=== PATIENT | female | born 1955 | race Caucasian/White ===

== ENCOUNTER → 2018-04-26 07:43 | Outpatient (CLI) | payer BC, SELFPAY ==
--- NOTE | 2018-04-26 07:47 | DI.MG.S_ITS ---
BILATERAL DIGITAL SCREENING MAMMOGRAM 3D/2D WITH CAD: 04/26/2018 CLINICAL: Routine screening. Comparison is made to exams dated: 04/08/2017 mammogram - , 11/04/2015 mammogram - [facility], and 09/04/2014 mammogram - . There are scattered fibroglandular elements in both breasts. Current study was also evaluated with a Computer Aided Detection (CAD) system. No significant masses, calcifications, or other findings are seen in either breast. There has been no significant interval change. IMPRESSION: NEGATIVE There is no mammographic evidence of malignancy. A 1 year screening mammogram is recommended. This exam was interpreted at Station ID: [id number]. NOTE: For mammograms, a report in lay terms will be sent to the patient. Approximately 15% of breast malignancies will not be visualized mammographically. In the management of a palpable breast mass, a negative mammogram must not discourage biopsy of a clinically suspicious lesion. Electronically Signed By: Dawood quinteros/montse:04/26/2018 20:09:05 copy to: DARVIN ESPINAL letter sent: Normal Exam ACR BI-RADS Category 1: Negative [id number]
== END ==
PROVIDERS: Family Provider Family Medicine; PCP Family Medicine; Visit Provider Family Medicine
DX: Z12.31 Encounter for screening mammogram for malignant neoplasm of breast (principal)
CPT/HCPCS: 77063; 77067

== ENCOUNTER 2018-09-15 09:45 | Outpatient (RCR) | payer BC, SELFPAY ==
--- NOTE | 2018-06-30 12:13 | PT.OIE ---
Current Diagnoses Stress incontinence (female) (male) (06/30/18) Provider Visit Care Team Role Provider Type Meet Chatterjee MD Family Provider Physician Primary Care Provider Specialty: Family Practice Address: [address] [place] [address], [id number] Email: [email or web address] CHARLEEN Lott Attending Provider Non-Staff Specialty: Medical Address: [address] [place] [address], [id number] Email: Physical Therapy Initial Evaluation PT-OP-A Visit Information Start: 06/30/18 09:40 Freq: Status: Active Protocol: Document 06/30/18 09:49 AMB (Rec: 07/02/18 12:13 AMB [email or web address]) Out-Patient Physical Therapy Visit Information Visit Information Visit Type Initial Evaluation Visit Start Time 09:45 Visit Stop Time 10:30 Total Visit Minutes 45 Visit Number 1 Number of WIRE SAW OPERATOR Visits 0 Evaluation Information Evaluation Date 06/30/18 PT-OP-B Current Condition Start: 06/30/18 09:40 Freq: Status: Active Protocol: Document 06/30/18 09:49 AMB (Rec: 06/30/18 09:58 AMB [id number]) Current Condition History of Current Condition Onset Date A few months Current Complaints Stress urinary incontinence History of Current Condition Leaking with laughing and jogging has worsened over the past few months, but has been present for years. 2 years ago, now engaged. Not currently leaking with intercourse, but that was a problem with her . Running and laughing cause large leaks. Gets urge. Uses four mini pads a day. 1 instance of fecal incontinence at a restaurant, not when sick. Does have history of bleeding rectally with sprinting, was previously running before her cervical fusion surgery 2 years and it was more of a problem then. Was unable to tolerate colonoscopy, but denies hemorrhoids, has had two instances of bleeding when not running. Prior Functional Status Baseline Function- ADL's Independent Baseline Function- Mobility Independent Current Functional Impairments (Reported) Functional Limitations- ADL's Leaking with laughing, jogging Personal Factors Other Personal Factors That May Effect and hysterectomy( Therapy/Recovery 2001) with scar from umbilicus to superior to pubic bone. C -spine fusion 2 years ago. Osteoporosis, hypertension. PT-OP-C Subjective Start: 06/30/18 09:40 Freq: Status: Active Protocol: Document 06/30/18 09:49 AMB (Rec: 07/02/18 12:13 AMB [email or web address]) Patient Questionnaires Pelvic Pain and Urgency/Frequency Patient Symptom Scale Pelvic Pain Score 11 PT-OP-I Pelvic Floor Start: 06/30/18 09:40 Freq: Status: Active Protocol: Document 06/30/18 09:49 AMB (Rec: 07/02/18 12:13 AMB [email or web address]) Pelvic Floor Assessment Urine Pelvic Floor Surgery Yes: open hysterectomy Urinary Symptoms Urge Sensation Other Urinary Symptoms hx of UTI when with her , hasn't had one in awhile Leakage Size Large Leakage Cause Cough Exercise Sneeze Urge Other Leakage Causes historically intercourse, not currently Leaks Per Day depends Voiding Frequency every hour Nocturia 1 Pads Used In 24 Hours 4 Urine Pad Type Panty Liner Bowel Other Bowel Symptoms history of intermittent rectal bleeding with activity Pelvic Clock Pelvic Clock 12-3 Atrophy Pelvic Clock 9-12 Atrophy Prolapse Prolapse Comments no visible descent with bearing down Contraction Ability Voluntary Contraction Weak Voluntary Relaxation Moderate Manual Muscle Testing Left 1 Manual Muscle Testing Right 1 Manual Muscle Testing Anterior 0 Manual Muscle Testing Posterior 2 Muscle Endurance (Seconds) 3 Number of Quick Contractions In 10 3 Seconds PT-OP-Q Treatments Start: 06/30/18 09:40 Freq: Status: Active Protocol: Document 06/30/18 09:49 AMB (Rec: 07/02/18 12:13 AMB [email or web address]) Manual Therapy Treatment Other Other Manual Treatments instruction in self scar massage PT-OP-T Assessment and Plan Start: 06/30/18 09:40 Freq: Status: Active Protocol: Document 06/30/18 09:49 AMB (Rec: 07/02/18 12:13 AMB [email or web address]) Physical Therapy Assessment Rehab Potential Rehabilitation Potential Good Evaluation Complexity Number of Personal Factors/Comorbidities 1-2 Number of Body Systems Impaired 1-2 Clinical Presentation at Evaluation Stable Impairments Impairments Soft Tissue Mobility Strength Goals Three Impairment pelvic floor strength Senior Care Goal (LTG) The patient will have 3/5 pelvic floor strenght or greater. LTG Duration 8 weeks Two Impairment urinary frequency Short Term Goal (STG) The patient will wait 3 horus between urine voids. STG Duration 4 weeks One Impairment incontinence Short Term Goal (STG) The patient will be independent with a pelvic floor strengthening program. STG Duration 4 weeks Folder Machine Operator Goal (LTG) The patient will laugh without leaking urine. LTG Duration 8 weeks Assessment Summary Assessment The patient presents with stress urinary incontience that has been worsening over time so that now she has large leaks. She also had one instance of fecal incontinence , and a history of fecal bleeding. Her / hysterectomy scar is very adhered down for being 14 years old, and is impairing her core strength if not her pelvic floor. She will benefit from PT to improve her pelvic floor and core strength, as well as mobility. Physical Therapy Plan Frequency and Duration Frequency of Treatment 1x/Week Duration of Treatment 8 weeks Plan of Care Start Date 06/30/18 Plan of Care End Date 08/25/18 Therapeutic Interventions Therapeutic Interventions Home Exercise Program Manual Therapy Neuromuscular Re-education Self-Care/Home Management Soft Tissue Mobilization Therapeutic Activities Therapeutic Exercises Modalities Biofeedback Electric Stimulation Next Visit Focus/Plan Next Note Type Treatment Note Next Visit Plan Begin with supine exercises, review manual therapy, start biofeedback
--- NOTE | 2018-06-30 12:14 | PT.OPPOC ---
Current Diagnoses Stress incontinence (female) (male) (06/30/18) Provider Visit Care Team Role Provider Type Meet Chatterjee MD Family Provider Physician Primary Care Provider Specialty: Family Practice Address: [address] [place] [address], [id number] Email: [email or web address] CHARLEEN Lott Attending Provider Non-Staff Specialty: Medical Address: [address] [place] [address], [phone] Email: Plan Of Care PT-OP-T Assessment and Plan Start: 06/30/18 09:40 Freq: Status: Active Protocol: Document 06/30/18 09:49 AMB (Rec: 07/02/18 12:13 AMB [email or web address]) Physical Therapy Assessment Rehab Potential Rehabilitation Potential Good Evaluation Complexity Number of Personal Factors/Comorbidities 1-2 Number of Body Systems Impaired 1-2 Clinical Presentation at Evaluation Stable Impairments Impairments Soft Tissue Mobility Strength Goals Three Impairment pelvic floor strength Longterm Goal (LTG) The patient will have 3/5 pelvic floor strenght or greater. LTG Duration 8 weeks Two Impairment urinary frequency Short Term Goal (STG) The patient will wait 3 horus between urine voids. STG Duration 4 weeks One Impairment incontinence Short Term Goal (STG) The patient will be independent with a pelvic floor strengthening program. STG Duration 4 weeks Longterm Goal (LTG) The patient will laugh without leaking urine. LTG Duration 8 weeks Assessment Summary Assessment The patient presents with stress urinary incontience that has been worsening over time so that now she has large leaks. She also had one instance of fecal incontinence , and a history of fecal bleeding. Her / hysterectomy scar is very adhered down for being 14 years old, and is impairing her core strength if not her pelvic floor. She will benefit from PT to improve her pelvic floor and core strength, as well as mobility. Physical Therapy Plan Frequency and Duration Frequency of Treatment 1x/Week Duration of Treatment 8 weeks Plan of Care Start Date 06/30/18 Plan of Care End Date 08/25/18 Therapeutic Interventions Therapeutic Interventions Home Exercise Program Manual Therapy Neuromuscular Re-education Self-Care/Home Management Soft Tissue Mobilization Therapeutic Activities Therapeutic Exercises Modalities Biofeedback Electric Stimulation Next Visit Focus/Plan Next Note Type Treatment Note Next Visit Plan Beging with supine exercises, review manual therapy, start biofeedback Plan of Care Dates Plan of Care Start Date 06/30/18 Plan of Care End Date 08/25/18 Please Sign and Return: I have reviewed this Plan of Care and certify that the skilled therapy services above are required to meet the patient?s needs. Physician Signature Date Printed Name and Credentials Clinical Instructor Signature Printed Name and Credentials
--- NOTE | 2018-07-07 09:45 | PT.OTN ---
Current Diagnoses Stress incontinence (female) (male) (07/07/18) Physical Therapy Treatment Note PT-OP-A Visit Information Start: 06/30/18 09:40 Freq: Status: Active Protocol: Document 07/07/18 09:45 AMB (Rec: 07/09/18 10:53 AMB [email or web address]) Out-Patient Physical Therapy Visit Information Visit Information Visit Type Treatment Note Visit Start Time 09:45 Visit Stop Time 10:30 Total Visit Minutes 45 Visit Number 2 Number of PATIENT SERVICE SPECIALIST Visits 0 Evaluation Information Evaluation Date 06/30/18 PT-OP-B Current Condition Start: 06/30/18 09:40 Freq: Status: Active Protocol: Document 06/30/18 09:49 AMB (Rec: 06/30/18 09:58 AMB [id number]) Current Condition History of Current Condition Onset Date A few months Current Complaints Stress urinary incontinence History of Current Condition Leaking with laughing and jogging has worsened over the past few months, but has been present for years. 2 years ago, now engaged. Not currently leaking with intercourse, but that was a problem with her . Running and laughing cause large leaks. Gets urge. Uses four mini pads a day. 1 instance of fecal incontinence at a restuarant, not when sick. Does have history of bleeding rectally with sprinting, was previously running before her cervical fusion surgery 2 years and it was more of a problem then. Was unable to tolerate colonoscopy, but denies hemerrhoids, has had two instances of bleeding when not running. Prior Functional Status Baseline Function- ADL's Independent Baseline Function- Mobility Independent Current Functional Impairments (Reported) Functional Limitations- ADL's Leaking with laughing, jogging Personal Factors Other Personal Factors That May Effect and hysterectomy( Therapy/Recovery 2001) with scar from umbilicus to superior to pubic bone. C -spine fusion 2 years ago. Osteoporosis, hypertension. PT-OP-C Subjective Start: 06/30/18 09:40 Freq: Status: Active Protocol: Document 07/07/18 09:45 AMB (Rec: 07/09/18 10:53 AMB [email or web address]) OP-PT Subjective Patient Comments Patient Comments Pt states she is doing well, continues to notice leaking. Specifies that cervical fusion surgery was due to central canal stenosis. PT-OP-I Pelvic Floor Start: 06/30/18 09:40 Freq: Status: Active Protocol: Document 06/30/18 09:49 AMB (Rec: 07/02/18 12:13 AMB [email or web address]) Pelvic Floor Assessment Urine Pelvic Floor Surgery Yes: open hysterectomy Urinary Symptoms Urge Sensation Other Urinary Symptoms hx of UTI when with her , hasn't had one in awhile Leakage Size Large Leakage Cause Cough Exercise Sneeze Urge Other Leakage Causes historically intercourse, not currently Leaks Per Day depends Voiding Frequency every hour Nocturia 1 Pads Used In 24 Hours 4 Urine Pad Type Panty Liner Bowel Other Bowel Symptoms history of intermittent rectal bleeding with activity Pelvic Clock Pelvic Clock 12-3 Atrophy Pelvic Clock 9-12 Atrophy Prolapse Prolapse Comments no visible descent with bearing down Contraction Ability Voluntary Contraction Weak Voluntary Relaxation Moderate Manual Muscle Testing Left 1 Manual Muscle Testing Right 1 Manual Muscle Testing Anterior 0 Manual Muscle Testing Posterior 2 Muscle Endurance (Seconds) 3 Number of Quick Contractions In 10 3 Seconds PT-OP-Q Treatments Start: 06/30/18 09:40 Freq: Status: Active Protocol: Document 07/07/18 09:45 AMB (Rec: 07/09/18 10:53 AMB [email or web address]) Therapeutic Exercises Supine Exercises 2 Supine Exercise Name hip add isometric Reps/Minutes 10 Comments hooklying 1 Supine Exercise Name hip abd Resistance #3 Reps/Minutes 10 Comments t band Neuro Re-Education Treatment Other Activities 2 Details long holds Comments hooklying with sEMG 1 Details quick flicks Comments hooklying with sEMG PT-OP-T Assessment and Plan Start: 06/30/18 09:40 Freq: Status: Active Protocol: Document 07/07/18 09:45 AMB (Rec: 07/09/18 10:53 AMB [email or web address]) Physical Therapy Assessment Assessment Summary Assessment Pt with cueing to avoid abdominal or gluteal contractions, better endurance today. Physical Therapy Plan Next Visit Focus/Plan Next Note Type Treatment Note Next Visit Plan Beging with supine exercises, review manual therapy,
--- NOTE | 2018-07-14 16:12 | PT.OTN ---
Current Diagnoses Stress incontinence (female) (male) (07/14/18) Physical Therapy Treatment Note PT-OP-A Visit Information Start: 06/30/18 09:40 Freq: Status: Active Protocol: Document 07/14/18 09:00 AMB (Rec: 07/14/18 09:24 AMB [id number]) Out-Patient Physical Therapy Visit Information Visit Information Visit Type Treatment Note Visit Start Time 09:45 Visit Stop Time 10:30 Total Visit Minutes 45 Visit Number 3 Number of CASINO ASSISTANT MANAGER Visits 0 PT-OP-B Current Condition Start: 06/30/18 09:40 Freq: Status: Active Protocol: Document 06/30/18 09:49 AMB (Rec: 06/30/18 09:58 AMB [id number]) Current Condition History of Current Condition Onset Date A few months Current Complaints Stress urinary incontinence History of Current Condition Leaking with laughing and jogging has worsened over the past few months, but has been present for years. 2 years ago, now engaged. Not currently leaking with intercourse, but that was a problem with her . Running and laughing cause large leaks. Gets urge. Uses four mini pads a day. 1 instance of fecal incontinence at a restuarant, not when sick. Does have history of bleeding rectally with sprinting, was previously running before her cervical fusion surgery 2 years and it was more of a problem then. Was unable to tolerate colonoscopy, but denies hemerrhoids, has had two instances of bleeding when not running. Prior Functional Status Baseline Function- ADL's Independent Baseline Function- Mobility Independent Current Functional Impairments (Reported) Functional Limitations- ADL's Leaking with laughing, jogging Personal Factors Other Personal Factors That May Effect and hysterectomy( Therapy/Recovery 2001) with scar from umbilicus to superior to pubic bone. C -spine fusion 2 years ago. Osteoporosis, hypertension. PT-OP-C Subjective Start: 06/30/18 09:40 Freq: Status: Active Protocol: Document 07/14/18 09:00 AMB (Rec: 07/14/18 09:24 AMB [id number]) OP-PT Subjective Patient Comments Patient Comments Pt has noticed an improvement with leaking if she contracts her pelvic floor with laughing . PT-OP-I Pelvic Floor Start: 06/30/18 09:40 Freq: Status: Active Protocol: Document 06/30/18 09:49 AMB (Rec: 07/02/18 12:13 AMB [email or web address]) Pelvic Floor Assessment Urine Pelvic Floor Surgery Yes: open hysterectomy Urinary Symptoms Urge Sensation Other Urinary Symptoms hx of UTI when with her , hasn't had one in awhile Leakage Size Large Leakage Cause Cough Exercise Sneeze Urge Other Leakage Causes historically intercourse, not currently Leaks Per Day depends Voiding Frequency every hour Nocturia 1 Pads Used In 24 Hours 4 Urine Pad Type Panty Liner Bowel Other Bowel Symptoms history of intermittent rectal bleeding with activity Pelvic Clock Pelvic Clock 12-3 Atrophy Pelvic Clock 9-12 Atrophy Prolapse Prolapse Comments no visible descent with bearing down Contraction Ability Voluntary Contraction Weak Voluntary Relaxation Moderate Manual Muscle Testing Left 1 Manual Muscle Testing Right 1 Manual Muscle Testing Anterior 0 Manual Muscle Testing Posterior 2 Muscle Endurance (Seconds) 3 Number of Quick Contractions In 10 3 Seconds PT-OP-Q Treatments Start: 06/30/18 09:40 Freq: Status: Active Protocol: Document 07/14/18 09:00 AMB (Rec: 07/14/18 16:12 AMB [email or web address]) Therapeutic Exercises Supine Exercises 2 Supine Exercise Name hip add isometric Reps/Minutes 10 Comments hooklying 1 Supine Exercise Name hip abd Resistance #3 Reps/Minutes 10 Comments t band Standing Exercises 2 Standing Exercise Name pelvic floor contract with WBOS/ stride stance Reps/Minutes 30x2 1 Standing Exercise Name pelvic floor contract with squat Reps/Minutes x5 Comments mini squat Neuro Re-Education Treatment Other Activities 2 Details long holds Comments hooklying with sEMG 1 Details quick flicks Comments hooklying with sEMG PT-OP-T Assessment and Plan Start: 06/30/18 09:40 Freq: Status: Active Protocol: Document 07/14/18 09:00 AMB (Rec: 07/14/18 09:45 AMB [id number]) Physical Therapy Assessment Assessment Summary Assessment Pt's endurance is improving well, although standing is still difficult. Physical Therapy Plan Next Visit Focus/Plan Next Note Type Treatment Note Next Visit Plan Progress standing exercises
--- NOTE | 2018-08-04 16:32 | PT.OTN ---
Current Diagnoses Stress incontinence (female) (male) (08/04/18) Physical Therapy Treatment Note PT-OP-A Visit Information Start: 06/30/18 09:40 Freq: Status: Active Protocol: Document 08/04/18 09:45 AMB (Rec: 08/04/18 16:32 AMB [email or web address]) Out-Patient Physical Therapy Visit Information Visit Information Visit Type Treatment Note Visit Start Time 09:45 Visit Stop Time 10:30 Total Visit Minutes 45 Visit Number 4 Evaluation Information Evaluation Date 06/30/18 PT-OP-B Current Condition Start: 06/30/18 09:40 Freq: Status: Active Protocol: Document 06/30/18 09:49 AMB (Rec: 06/30/18 09:58 AMB [id number]) Current Condition History of Current Condition Onset Date A few months Current Complaints Stress urinary incontinence History of Current Condition Leaking with laughing and jogging has worsened over the past few months, but has been present for years. 2 years ago, now engaged. Not currently leaking with intercourse, but that was a problem with her . Running and laughing cause large leaks. Gets urge. Uses four mini pads a day. 1 instance of fecal incontinence at a restuarant, not when sick. Does have history of bleeding rectally with sprinting, was previously running before her cervical fusion surgery 2 years and it was more of a problem then. Was unable to tolerate colonoscopy, but denies hemerrhoids, has had two instances of bleeding when not running. Prior Functional Status Baseline Function- ADL's Independent Baseline Function- Mobility Independent Current Functional Impairments (Reported) Functional Limitations- ADL's Leaking with laughing, jogging Personal Factors Other Personal Factors That May Effect and hysterectomy( Therapy/Recovery 2001) with scar from umbilicus to superior to pubic bone. C -spine fusion 2 years ago. Osteoporosis, hypertension. PT-OP-C Subjective Start: 06/30/18 09:40 Freq: Status: Active Protocol: Document 08/04/18 09:45 AMB (Rec: 08/04/18 16:32 AMB [email or web address]) OP-PT Subjective Patient Comments Patient Comments The pt has been able to do the kegel's with laughing and that has helped, until last night. Her bladder was leaking, and then she stood up and leaked a large amount. PT-OP-I Pelvic Floor Start: 06/30/18 09:40 Freq: Status: Active Protocol: Document 06/30/18 09:49 AMB (Rec: 07/02/18 12:13 AMB [email or web address]) Pelvic Floor Assessment Urine Pelvic Floor Surgery Yes: open hysterectomy Urinary Symptoms Urge Sensation Other Urinary Symptoms hx of UTI when with her , hasn't had one in awhile Leakage Size Large Leakage Cause Cough Exercise Sneeze Urge Other Leakage Causes historically intercourse, not currently Leaks Per Day depends Voiding Frequency every hour Nocturia 1 Pads Used In 24 Hours 4 Urine Pad Type Panty Liner Bowel Other Bowel Symptoms history of intermittent rectal bleeding with activity Pelvic Clock Pelvic Clock 12-3 Atrophy Pelvic Clock 9-12 Atrophy Prolapse Prolapse Comments no visible descent with bearing down Contraction Ability Voluntary Contraction Weak Voluntary Relaxation Moderate Manual Muscle Testing Left 1 Manual Muscle Testing Right 1 Manual Muscle Testing Anterior 0 Manual Muscle Testing Posterior 2 Muscle Endurance (Seconds) 3 Number of Quick Contractions In 10 3 Seconds PT-OP-Q Treatments Start: 06/30/18 09:40 Freq: Status: Active Protocol: Document 08/04/18 09:45 AMB (Rec: 08/04/18 16:32 AMB [email or web address]) Therapeutic Exercises Supine Exercises 2 Supine Exercise Name hip add isometric Reps/Minutes 10 Comments hooklying 1 Supine Exercise Name hip abd Resistance #3 Reps/Minutes 10 Comments t band Standing Exercises 4 Standing Exercise Name mini lunges Comments with pelvic floor contraction 3 Standing Exercise Name sit to stand Reps/Minutes with pelvic floor contraction 2 Standing Exercise Name pelvic floor contract with WBOS/ stride stance Reps/Minutes 30x2 1 Standing Exercise Name pelvic floor contract with squat Reps/Minutes x5 Comments mini squat Neuro Re-Education Treatment Other Activities 2 Details long holds Comments hooklying with sEMG 1 Details quick flicks Comments hooklying with sEMG PT-OP-T Assessment and Plan Start: 06/30/18 09:40 Freq: Status: Active Protocol: Document 08/04/18 09:45 AMB (Rec: 08/04/18 16:32 AMB [email or web address]) Physical Therapy Assessment Assessment Summary Assessment The patient is doing well with her standing exercises. Added in standing with movement. Physical Therapy Plan Next Visit Focus/Plan Next Note Type Treatment Note Next Visit Plan Progress standing exercises
--- NOTE | 2018-08-11 15:25 | PT.OTN ---
Current Diagnoses Stress incontinence (female) (male) (08/11/18) Physical Therapy Treatment Note PT-OP-A Visit Information Start: 06/30/18 09:40 Freq: Status: Active Protocol: Document 08/11/18 09:45 AMB (Rec: 08/11/18 15:25 AMB [email or web address]) Out-Patient Physical Therapy Visit Information Visit Information Visit Type Treatment Note Visit Start Time 09:45 Visit Stop Time 10:30 Total Visit Minutes 45 Visit Number 5 PT-OP-B Current Condition Start: 06/30/18 09:40 Freq: Status: Active Protocol: Document 06/30/18 09:49 AMB (Rec: 06/30/18 09:58 AMB [id number]) Current Condition History of Current Condition Onset Date A few months Current Complaints Stress urinary incontinence History of Current Condition Leaking with laughing and jogging has worsened over the past few months, but has been present for years. 2 years ago, now engaged. Not currently leaking with intercourse, but that was a problem with her . Running and laughing cause large leaks. Gets urge. Uses four mini pads a day. 1 instance of fecal incontinence at a restuarant, not when sick. Does have history of bleeding rectally with sprinting, was previously running before her cervical fusion surgery 2 years and it was more of a problem then. Was unable to tolerate colonoscopy, but denies hemerrhoids, has had two instances of bleeding when not running. Prior Functional Status Baseline Function- ADL's Independent Baseline Function- Mobility Independent Current Functional Impairments (Reported) Functional Limitations- ADL's Leaking with laughing, jogging Personal Factors Other Personal Factors That May Effect and hysterectomy( Therapy/Recovery 2001) with scar from umbilicus to superior to pubic bone. C -spine fusion 2 years ago. Osteoporosis, hypertension. PT-OP-C Subjective Start: 06/30/18 09:40 Freq: Status: Active Protocol: Document 08/11/18 09:45 AMB (Rec: 08/11/18 15:25 AMB [email or web address]) OP-PT Subjective Patient Comments Patient Comments Pt tried to jog and that made her leak. otherwise no leaks this week. PT-OP-I Pelvic Floor Start: 06/30/18 09:40 Freq: Status: Active Protocol: Document 06/30/18 09:49 AMB (Rec: 07/02/18 12:13 AMB [email or web address]) Pelvic Floor Assessment Urine Pelvic Floor Surgery Yes: open hysterectomy Urinary Symptoms Urge Sensation Other Urinary Symptoms hx of UTI when with her , hasn't had one in awhile Leakage Size Large Leakage Cause Cough Exercise Sneeze Urge Other Leakage Causes historically intercourse, not currently Leaks Per Day depends Voiding Frequency every hour Nocturia 1 Pads Used In 24 Hours 4 Urine Pad Type Panty Liner Bowel Other Bowel Symptoms history of intermittent rectal bleeding with activity Pelvic Clock Pelvic Clock 12-3 Atrophy Pelvic Clock 9-12 Atrophy Prolapse Prolapse Comments no visible descent with bearing down Contraction Ability Voluntary Contraction Weak Voluntary Relaxation Moderate Manual Muscle Testing Left 1 Manual Muscle Testing Right 1 Manual Muscle Testing Anterior 0 Manual Muscle Testing Posterior 2 Muscle Endurance (Seconds) 3 Number of Quick Contractions In 10 3 Seconds PT-OP-Q Treatments Start: 06/30/18 09:40 Freq: Status: Active Protocol: Document 08/11/18 09:45 AMB (Rec: 08/11/18 15:25 AMB [email or web address]) Therapeutic Exercises Standing Exercises 4 Standing Exercise Name large lunges Comments with pelvic floor contraction 3 Standing Exercise Name sit to stand Reps/Minutes with pelvic floor contraction 2 Standing Exercise Name pelvic floor contract with WBOS/ stride stance Reps/Minutes 30x2 1 Standing Exercise Name pelvic floor contract with squat Reps/Minutes x5 Comments large squat Other Exercises 2 Other Exercise Name quadruped LE ER Reps/Minutes 2x10 1 Other Exercise Name quadruped LE ext Reps/Minutes 2x10 PT-OP-T Assessment and Plan Start: 06/30/18 09:40 Freq: Status: Active Protocol: Document 08/11/18 09:45 AMB (Rec: 08/11/18 15:25 AMB [email or web address]) Physical Therapy Assessment Assessment Summary Assessment Pt is going out of town for two weeks. Meeting goals, but higher level impact activities remain challenging. Physical Therapy Plan Frequency and Duration Frequency of Treatment 1x/Week Duration of Treatment 8 weeks Plan of Care Start Date 06/30/18 Plan of Care End Date 08/25/18 Next Visit Focus/Plan Next Note Type Progress Note
--- NOTE | 2018-09-01 12:00 | PT.OPPOC ---
Current Diagnoses Stress incontinence (female) (male) (09/01/18) Provider Visit Care Team Role Provider Type Meet Chatterjee MD Family Provider Physician Primary Care Provider Specialty: Family Practice Address: [address] [place] [address], [id number] Email: [email or web address] CHARLEEN Lott Attending Provider Non-Staff Specialty: Medical Address: [address] [place] [address], [id number] Email: Plan Of Care PT-OP-T Assessment and Plan Start: 06/30/18 09:40 Freq: Status: Active Protocol: Document 09/01/18 09:00 AMB (Rec: 09/01/18 09:17 AMB [id number]) Physical Therapy Assessment Goals Three Impairment pelvic floor strength Skilled Nursing Goal (LTG) The patient will have 3/5 pelvic floor strenght or greater. 09/01: Progress made 2/5 LTG Duration 8 weeks Two Impairment urinary frequency Short Term Goal (STG) The patient will wait 3 horus between urine voids. STG Duration MET One Impairment incontinence Short Term Goal (STG) The patient will be independent with a pelvic floor strengthening program. STG Duration 4 weeks Frame Catcher Goal (LTG) The patient will laugh without leaking urine. 09/01: intermittently met LTG Duration 8 weeks Assessment Summary Assessment The patient has shown good improvement with her continence, but continues to have pelvic floor weakness. If she were to return to running, she would likely continue to have leaks, but for her current activity level she has improved. She will benefit from further instruction to help avoid leaks with laughing. Physical Therapy Plan Frequency and Duration Frequency of Treatment 1x/Week Duration of Treatment 4 weeks Plan of Care Start Date 09/01/18 Plan of Care End Date 09/29/18 Therapeutic Interventions Therapeutic Interventions Home Exercise Program Manual Therapy Neuromuscular Re-education Self-Care/Home Management Therapeutic Activities Therapeutic Exercises Modalities Biofeedback Electric Stimulation Next Visit Focus/Plan Next Note Type Treatment Note Next Visit Plan Discharging soon. Pt feels that she has made good progress, but continues to have small leaks with laughing , especially with a full bladder. Plan of Care Dates Plan of Care Start Date 09/01/18 Plan of Care End Date 09/29/18 Please Sign and Return: I have reviewed this Plan of Care and certify that the skilled therapy services above are required to meet the patient?s needs. Physician Signature Date Printed Name and Credentials Clinical Instructor Signature Printed Name and Credentials
--- NOTE | 2018-09-01 12:00 | PT.OTN ---
Current Diagnoses Stress incontinence (female) (male) (09/01/18) Physical Therapy Treatment Note PT-OP-A Visit Information Start: 06/30/18 09:40 Freq: Status: Active Protocol: Document 09/01/18 09:00 AMB (Rec: 09/01/18 09:08 AMB [id number]) Out-Patient Physical Therapy Visit Information Visit Information Visit Type Treatment Note Visit Start Time 09:00 Visit Stop Time 09:45 Total Visit Minutes 45 Visit Number 6 PT-OP-B Current Condition Start: 06/30/18 09:40 Freq: Status: Active Protocol: Document 06/30/18 09:49 AMB (Rec: 06/30/18 09:58 AMB [id number]) Current Condition History of Current Condition Onset Date A few months Current Complaints Stress urinary incontinence History of Current Condition Leaking with laughing and jogging has worsened over the past few months, but has been present for years. 2 years ago, now engaged. Not currently leaking with intercourse, but that was a problem with her . Running and laughing cause large leaks. Gets urge. Uses four mini pads a day. 1 instance of fecal incontinence at a restuarant, not when sick. Does have history of bleeding rectally with sprinting, was previously running before her cervical fusion surgery 2 years and it was more of a problem then. Was unable to tolerate colonoscopy, but denies hemerrhoids, has had two instances of bleeding when not running. Prior Functional Status Baseline Function- ADL's Independent Baseline Function- Mobility Independent Current Functional Impairments (Reported) Functional Limitations- ADL's Leaking with laughing, jogging Personal Factors Other Personal Factors That May Effect and hysterectomy( Therapy/Recovery 2001) with scar from umbilicus to superior to pubic bone. C -spine fusion 2 years ago. Osteoporosis, hypertension. PT-OP-C Subjective Start: 06/30/18 09:40 Freq: Status: Active Protocol: Document 09/01/18 09:00 AMB (Rec: 09/01/18 09:08 AMB [id number]) OP-PT Subjective Patient Comments Patient Comments Pt reports no recent leaks, although she has not tried to jog. PT-OP-I Pelvic Floor Start: 06/30/18 09:40 Freq: Status: Active Protocol: Document 06/30/18 09:49 AMB (Rec: 07/02/18 12:13 AMB [email or web address]) Pelvic Floor Assessment Urine Pelvic Floor Surgery Yes: open hysterectomy Urinary Symptoms Urge Sensation Other Urinary Symptoms hx of UTI when with her , hasn't had one in awhile Leakage Size Large Leakage Cause Cough Exercise Sneeze Urge Other Leakage Causes historically intercourse, not currently Leaks Per Day depends Voiding Frequency every hour Nocturia 1 Pads Used In 24 Hours 4 Urine Pad Type Panty Liner Bowel Other Bowel Symptoms history of intermittent rectal bleeding with activity Pelvic Clock Pelvic Clock 12-3 Atrophy Pelvic Clock 9-12 Atrophy Prolapse Prolapse Comments no visible descent with bearing down Contraction Ability Voluntary Contraction Weak Voluntary Relaxation Moderate Manual Muscle Testing Left 1 Manual Muscle Testing Right 1 Manual Muscle Testing Anterior 0 Manual Muscle Testing Posterior 2 Muscle Endurance (Seconds) 3 Number of Quick Contractions In 10 3 Seconds PT-OP-Q Treatments Start: 06/30/18 09:40 Freq: Status: Active Protocol: Document 09/01/18 09:00 AMB (Rec: 09/01/18 09:45 AMB [id number]) Therapeutic Exercises Supine Exercises 2 Supine Exercise Name hip add isometric Reps/Minutes 10 Comments hooklying 1 Supine Exercise Name hip abd Resistance #3 Reps/Minutes 10 Comments t band Standing Exercises 4 Standing Exercise Name large lunges Comments with pelvic floor contraction 3 Standing Exercise Name sit to stand Reps/Minutes with pelvic floor contraction 2 Standing Exercise Name pelvic floor contract with WBOS/ stride stance Reps/Minutes 30x2 1 Standing Exercise Name pelvic floor contract with squat Reps/Minutes x5 Comments large squat Neuro Re-Education Treatment Other Activities 2 Details long holds Comments hooklying with sEMG 1 Details quick flicks Comments hooklying with sEMG PT-OP-T Assessment and Plan Start: 06/30/18 09:40 Freq: Status: Active Protocol: Document 09/01/18 09:00 AMB (Rec: 09/01/18 09:17 AMB [id number]) Physical Therapy Assessment Goals Three Impairment pelvic floor strength [facility]ci Goal (LTG) The patient will have 3/5 pelvic floor strenght or greater. 09/01: Progress made 2/5 LTG Duration 8 weeks Two Impairment urinary frequency Short Term Goal (STG) The patient will wait 3 horus between urine voids. STG Duration MET One Impairment incontinence Short Term Goal (STG) The patient will be independent with a pelvic floor strengthening program. STG Duration 4 weeks Fci Goal (LTG) The patient will laugh without leaking urine. 09/01: intermittently met LTG Duration 8 weeks Assessment Summary Assessment The patient has shown good improvement with her continence, but continues to have pelvic floor weakness. If she were to return to running, she would likely continue to have leaks, but for her current activity level she has improved. She will benefit from further instruction to help avoid leaks with laughing. Physical Therapy Plan Frequency and Duration Frequency of Treatment 1x/Week Duration of Treatment 4 weeks Plan of Care Start Date 09/01/18 Plan of Care End Date 09/29/18 Therapeutic Interventions Therapeutic Interventions Home Exercise Program Manual Therapy Neuromuscular Re-education Self-Care/Home Management Therapeutic Activities Therapeutic Exercises Modalities Biofeedback Electric Stimulation Next Visit Focus/Plan Next Note Type Treatment Note Next Visit Plan Discharging soon. Pt feels that she has made good progress, but continues to have small leaks with laughing , especially with a full bladder.
--- NOTE | 2018-09-08 13:22 | PT.OTN ---
Current Diagnoses Stress incontinence (female) (male) (09/08/18) Physical Therapy Treatment Note PT-OP-A Visit Information Start: 06/30/18 09:40 Freq: Status: Active Protocol: Document 09/08/18 09:45 AMB (Rec: 09/08/18 13:22 AMB [email or web address]) Out-Patient Physical Therapy Visit Information Visit Information Visit Type Treatment Note Visit Start Time 09:45 Visit Stop Time 10:30 Total Visit Minutes 45 Visit Number 7 PT-OP-B Current Condition Start: 06/30/18 09:40 Freq: Status: Active Protocol: Document 06/30/18 09:49 AMB (Rec: 06/30/18 09:58 AMB [id number]) Current Condition History of Current Condition Onset Date A few months Current Complaints Stress urinary incontinence History of Current Condition Leaking with laughing and jogging has worsened over the past few months, but has been present for years. 2 years ago, now engaged. Not currently leaking with intercourse, but that was a problem with her . Running and laughing cause large leaks. Gets urge. Uses four mini pads a day. 1 instance of fecal incontinence at a restuarant, not when sick. Does have history of bleeding rectally with sprinting, was previously running before her cervical fusion surgery 2 years and it was more of a problem then. Was unable to tolerate colonoscopy, but denies hemerrhoids, has had two instances of bleeding when not running. Prior Functional Status Baseline Function- ADL's Independent Baseline Function- Mobility Independent Current Functional Impairments (Reported) Functional Limitations- ADL's Leaking with laughing, jogging Personal Factors Other Personal Factors That May Effect and hysterectomy( Therapy/Recovery 2001) with scar from umbilicus to superior to pubic bone. C -spine fusion 2 years ago. Osteoporosis, hypertension. PT-OP-C Subjective Start: 06/30/18 09:40 Freq: Status: Active Protocol: Document 09/08/18 09:45 AMB (Rec: 09/08/18 13:22 AMB [email or web address]) OP-PT Subjective Patient Comments Patient Comments Pt does report leaking with laughing, they are all small leaks. PT-OP-I Pelvic Floor Start: 06/30/18 09:40 Freq: Status: Active Protocol: Document 06/30/18 09:49 AMB (Rec: 07/02/18 12:13 AMB [email or web address]) Pelvic Floor Assessment Urine Pelvic Floor Surgery Yes: open hysterectomy Urinary Symptoms Urge Sensation Other Urinary Symptoms hx of UTI when with her , hasn't had one in awhile Leakage Size Large Leakage Cause Cough Exercise Sneeze Urge Other Leakage Causes historically intercourse, not currently Leaks Per Day depends Voiding Frequency every hour Nocturia 1 Pads Used In 24 Hours 4 Urine Pad Type Panty Liner Bowel Other Bowel Symptoms history of intermittent rectal bleeding with activity Pelvic Clock Pelvic Clock 12-3 Atrophy Pelvic Clock 9-12 Atrophy Prolapse Prolapse Comments no visible descent with bearing down Contraction Ability Voluntary Contraction Weak Voluntary Relaxation Moderate Manual Muscle Testing Left 1 Manual Muscle Testing Right 1 Manual Muscle Testing Anterior 0 Manual Muscle Testing Posterior 2 Muscle Endurance (Seconds) 3 Number of Quick Contractions In 10 3 Seconds PT-OP-Q Treatments Start: 06/30/18 09:40 Freq: Status: Active Protocol: Document 09/08/18 09:45 AMB (Rec: 09/08/18 13:22 AMB [email or web address]) Therapeutic Exercises Supine Exercises 2 Supine Exercise Name hip add isometric Reps/Minutes 10 Comments hooklying 1 Supine Exercise Name hip abd Resistance #3 Reps/Minutes 10 Comments t band Standing Exercises 4 Standing Exercise Name large lunges Comments with pelvic floor contraction 2 Standing Exercise Name pelvic floor contract with WBOS/ stride stance Reps/Minutes 30x2 Neuro Re-Education Treatment Other Activities 2 Details long holds Comments hooklying with sEMG 1 Details quick flicks Comments hooklying with sEMG PT-OP-T Assessment and Plan Start: 06/30/18 09:40 Freq: Status: Active Protocol: Document 09/08/18 09:45 AMB (Rec: 09/08/18 13:22 AMB [email or web address]) Physical Therapy Assessment Assessment Summary Assessment Pt notes no large leaks, but small leaking with laughing can happen intermittently. Physical Therapy Plan Next Visit Focus/Plan Next Note Type Discharge Summary
--- NOTE | 2018-09-15 12:05 | PT.OTN ---
Current Diagnoses Stress incontinence (female) (male) (09/15/18) Physical Therapy Treatment Note PT-OP-A Visit Information Start: 06/30/18 09:40 Freq: Status: Active Protocol: Document 09/15/18 09:45 AMB (Rec: 09/15/18 09:57 AMB [id number]) Out-Patient Physical Therapy Visit Information Visit Information Visit Type Discharge Summary Visit Start Time 09:45 Visit Stop Time 10:30 Total Visit Minutes 45 Visit Number 8 PT-OP-B Current Condition Start: 06/30/18 09:40 Freq: Status: Active Protocol: Document 06/30/18 09:49 AMB (Rec: 06/30/18 09:58 AMB [id number]) Current Condition History of Current Condition Onset Date A few months Current Complaints Stress urinary incontinence History of Current Condition Leaking with laughing and jogging has worsened over the past few months, but has been present for years. 2 years ago, now engaged. Not currently leaking with intercourse, but that was a problem with her . Running and laughing cause large leaks. Gets urge. Uses four mini pads a day. 1 instance of fecal incontinence at a restuarant, not when sick. Does have history of bleeding rectally with sprinting, was previously running before her cervical fusion surgery 2 years and it was more of a problem then. Was unable to tolerate colonoscopy, but denies hemerrhoids, has had two instances of bleeding when not running. Prior Functional Status Baseline Function- ADL's Independent Baseline Function- Mobility Independent Current Functional Impairments (Reported) Functional Limitations- ADL's Leaking with laughing, jogging Personal Factors Other Personal Factors That May Effect and hysterectomy( Therapy/Recovery 2001) with scar from umbilicus to superior to pubic bone. C -spine fusion 2 years ago. Osteoporosis, hypertension. PT-OP-C Subjective Start: 06/30/18 09:40 Freq: Status: Active Protocol: Document 09/15/18 09:45 AMB (Rec: 09/15/18 09:57 AMB [id number]) OP-PT Subjective Patient Comments Patient Comments Pt able to stop the trickle when laughing. PT-OP-I Pelvic Floor Start: 06/30/18 09:40 Freq: Status: Active Protocol: Document 06/30/18 09:49 AMB (Rec: 07/02/18 12:13 AMB [email or web address]) Pelvic Floor Assessment Urine Pelvic Floor Surgery Yes: open hysterectomy Urinary Symptoms Urge Sensation Other Urinary Symptoms hx of UTI when with her , hasn't had one in awhile Leakage Size Large Leakage Cause Cough Exercise Sneeze Urge Other Leakage Causes historically intercourse, not currently Leaks Per Day depends Voiding Frequency every hour Nocturia 1 Pads Used In 24 Hours 4 Urine Pad Type Panty Liner Bowel Other Bowel Symptoms history of intermittent rectal bleeding with activity Pelvic Clock Pelvic Clock 12-3 Atrophy Pelvic Clock 9-12 Atrophy Prolapse Prolapse Comments no visible descent with bearing down Contraction Ability Voluntary Contraction Weak Voluntary Relaxation Moderate Manual Muscle Testing Left 1 Manual Muscle Testing Right 1 Manual Muscle Testing Anterior 0 Manual Muscle Testing Posterior 2 Muscle Endurance (Seconds) 3 Number of Quick Contractions In 10 3 Seconds PT-OP-Q Treatments Start: 06/30/18 09:40 Freq: Status: Active Protocol: Document 09/15/18 09:45 AMB (Rec: 09/15/18 12:05 AMB [email or web address]) Therapeutic Exercises Supine Exercises 2 Supine Exercise Name hip add isometric Reps/Minutes 10 Comments hooklying 1 Supine Exercise Name hip abd Resistance #3 Reps/Minutes 10 Comments t band Standing Exercises 4 Standing Exercise Name large lunges Comments with pelvic floor contraction 3 Standing Exercise Name sit to stand Reps/Minutes with pelvic floor contraction 2 Standing Exercise Name pelvic floor contract with WBOS/ stride stance Reps/Minutes 30x2 1 Standing Exercise Name pelvic floor contract with squat Reps/Minutes x5 Comments large squat Neuro Re-Education Treatment Other Activities 2 Details long holds Comments hooklying with sEMG 1 Details quick flicks Comments hooklying with sEMG PT-OP-T Assessment and Plan Start: 06/30/18 09:40 Freq: Status: Active Protocol: Document 09/15/18 09:45 AMB (Rec: 09/15/18 10:19 AMB [id number]) Physical Therapy Assessment Goals Three Impairment pelvic floor strength Footwear Production Machine Operator Goal (LTG) The patient will have 3/5 pelvic floor strenght or greater. 09/15: Progress made 2/5 LTG Duration 8 weeks Two Impairment urinary frequency Short Term Goal (STG) The patient will wait 3 horus between urine voids. STG Duration MET One Impairment incontinence Short Term Goal (STG) The patient will be independent with a pelvic floor strengthening program. STG Duration MET Footwear Production Machine Operator Goal (LTG) The patient will laugh without leaking urine. 09/15 intermittently met LTG Duration 8 weeks Assessment Summary Assessment Gifty has improved well. She can usually control her leaks with laughing or coughing, although running/jogging would likely require more pelvic floor strenght than she has. She is happy with her improvement so far and will do well with continuing her HEP independently at this time. Physical Therapy Plan Discharge Physical Therapy Discharge Reasons Goals Met
== END 2018-09-15 14:22 ==
LOC: PHYS 09:45
PROVIDERS: Family Provider Family Medicine; PCP Family Medicine; Visit Provider Nurse Practitioner Family
DX: N39.3 Stress incontinence (female) (male) (principal)
CPT/HCPCS: 97110; 97112; 97161

== ENCOUNTER → 2019-04-30 07:40 | Outpatient (CLI) | payer MEDICARE, BC, SELFPAY ==
--- NOTE | 2019-04-30 | DI.MG.S_ITS ---
BILATERAL DIGITAL SCREENING MAMMOGRAM 3D/2D WITH CAD: 04/30/2019 CLINICAL: Routine screening. Comparison is made to exams dated: 04/26/2018 mammogram, 04/08/2017 mammogram - [facility], and 11/04/2015 mammogram - [facility]. There are scattered fibroglandular elements in both breasts. Current study was also evaluated with a Computer Aided Detection (CAD) system. There is a benign biopsy clip in the left breast. No significant masses, calcifications, or other findings are seen in either breast. There has been no significant interval change. IMPRESSION: NEGATIVE There is no mammographic evidence of malignancy. A 1 year screening mammogram is recommended. This exam was interpreted at Station ID: [id number]. NOTE: For mammograms, a report in lay terms will be sent to the patient. Approximately 15% of breast malignancies will not be visualized mammographically. In the management of a palpable breast mass, a negative mammogram must not discourage biopsy of a clinically suspicious lesion. Electronically Signed By: Wilda stoll/[place]se:04/30/2019 10:57:38 copy to: DARVIN ESPINAL letter sent: Normal Exam ACR BI-RADS Category 1: Negative [id number]
== END ==
PROVIDERS: PCP Family Medicine; Visit Provider Family Medicine
DX: Z12.31 Encounter for screening mammogram for malignant neoplasm of breast (principal)
CPT/HCPCS: 77063; 77067

== ENCOUNTER → 2020-03-04 14:44 | Outpatient (CLI) | payer MEDICARE, BC, SELFPAY | PROVIDERS: PCP Family Medicine; Referring Provider Family Medicine; Visit Provider Family Medicine | DX: Z13.820 Encounter for screening for osteoporosis (principal); M81.0 Age-related osteoporosis without current pathological fracture; Z78.0 Asymptomatic menopausal state; Z82.62 Family history of osteoporosis | CPT/HCPCS: 77080 ==

== ENCOUNTER → 2020-05-07 16:46 | Outpatient (CLI) | payer MEDICARE, BC, SELFPAY ==
--- NOTE | 2020-05-07 17:01 | DI.MG.S_ITS ---
Patient Name: OPAL RUFF date: 1955 Sex: F Attending Physician: Shena Indications: Date: 05/07/2020 16:54 At the request of: TRAVIS ALSTON Procedure: MM screening mammo BI BILATERAL DIGITAL SCREENING MAMMOGRAM 3D/2D WITH CAD: 05/07/2020 CLINICAL: Routine screening. Comparison is made to exams dated: 04/30/2019 mammogram, 04/26/2018 mammogram, and 04/08/2017 mammogram - [facility]. There are scattered fibroglandular elements in both breasts. Current study was also evaluated with a Computer Aided Detection (CAD) system. There is a biopsy clip in the left breast. No significant masses, calcifications, or other findings are seen in either breast. There has been no significant interval change. IMPRESSION: NEGATIVE There is no mammographic evidence of malignancy. A 1 year screening mammogram is recommended. This exam was interpreted at Station ID: [id number]. NOTE: For mammograms, a report in lay terms will be sent to the patient. Approximately 15% of breast malignancies will not be visualized mammographically. In the management of a palpable breast mass, a negative mammogram must not discourage biopsy of a clinically suspicious lesion. Electronically Signed By: Tyson cervantes/montse:05/08/2020 07:39:37 letter sent: Normal Exam ACR BI-RADS Category 1: Negative 3341F
== END ==
PROVIDERS: PCP Family Medicine; Referring Provider Family Medicine; Visit Provider Family Medicine
DX: Z12.31 Encounter for screening mammogram for malignant neoplasm of breast (principal)
CPT/HCPCS: 77063; 77067

== ENCOUNTER → 2020-08-06 10:51 | Outpatient (CLI) | payer MEDICARE, BC, SELFPAY ==
--- NOTE | 2020-08-06 | DI.RAD.S_ITS ---
PROCEDURE: XR HAND LT 2V INDICATIONS: HAND PAIN NO TRAUMA TECHNIQUE: 2 views of the hand(s) acquired. COMPARISON: None. FINDINGS: Bones: No fractures or dislocations. Carpal bones are normally aligned. No suspicious bony lesions. Mild degenerative change of the 1st digit interphalangeal joint. No osseous erosion. No periosteal reaction. Soft tissues: No suspicious soft tissue calcifications. IMPRESSION: Mild degenerative change at the 1st digit interphalangeal joint is appreciated. Dictated by: Sourav Polk M.D. on 08/06/2020 at 11:15 Approved by: Sourav Polk M.D. on 08/06/2020 at 11:16
--- NOTE | 2020-08-06 | DI.RAD.S_ITS ---
PROCEDURE: XR FOOT LT 2V INDICATIONS: LEFT FOOT PAIN TECHNIQUE: 2 views of the foot were acquired. COMPARISON: [facility], , FOOT 3V RIGHT, 08/21/2012, 9:01. FINDINGS: Bones: No fractures or dislocations. No suspicious bony lesions. Soft tissues: No tibiotalar joint effusion. Achilles tendon appears normal. IMPRESSION: No acute radiographic findings. If there is continued pain, followup exam or additional imaging such as MRI or CT could be performed for further assessment. Dictated by: Janice Morel M.D. on 08/06/2020 at 11:47 Approved by: Janice Morel M.D. on 08/06/2020 at 11:48
== END ==
PROVIDERS: PCP Family Medicine; Referring Provider Family Medicine; Visit Provider Family Medicine
DX: M79.645 Pain in left finger(s); M79.675 Pain in left toe(s)
CPT/HCPCS: 73120; 73620

== ENCOUNTER 2021-04-12 22:21 | Emergency (ER) | payer MEDICARE, BC, SELFPAY ==
[2021-04-12] VITALS (7 sets, daily range): BP systolic 187–224; BP diastolic 91–107; PULSE 54–65; RESP 15–20; TEMP 37; O2SAT 96–99
--- NOTE | 2021-04-12 22:33 | DI.RAD.S_ITS ---
PROCEDURE: XR CHEST 1V INDICATIONS: chest pain TECHNIQUE: One view of the chest was acquired. COMPARISON: [facility], CT, CT ABDOMEN PELVIS WITH CONTRAST, 09/27/2017, 2:47. FINDINGS: Surgical changes and devices: Partially visualized cervical spine fixation hardware.. Lungs and pleura: Lungs are clear of acute opacities. 5 millimeter nodular density projects over the right lung base.. No pleural effusions or pneumothorax. Mediastinum: Mediastinal contours appear normal. Heart size is normal. Bones and chest wall: No suspicious bony lesions. Overlying soft tissues appear unremarkable. IMPRESSION: 1. No acute cardiopulmonary disease process. 2. 5 millimeter nodular density projecting of the right lung base which could represent superimposition shadows versus nodule. Recommend nonemergent CT scan of the chest clinically feasible. Dictated by: Dulce Bonilla MD, PhD on 04/12/2021 at 22:55 Approved by: Dulce Bonilla MD, PhD on 04/12/2021 at 22:58
--- NOTE | 2021-04-12 22:49 | PC.NURSE ---
Physical symptoms include dizziness and L hand tingling
[2021-04-12 23:02] LABS: Add Manual Diff / Slide Review NO; Basophils Absolute Auto 100 /uL (0-100); Eosinophils Absolute Auto 100 /uL (0-450); Eosinophils Percent Auto 1.8 % (2-4); Hematocrit 41.2 % (36-46); Hemoglobin 13.5 g/dL (12.0-16.0); Lymphocytes Absolute Auto 2200 /uL (1100-4500); Lymphocytes Percent Auto 30.5 % (25-40); Mean Corpuscular HGB Conc 32.7 % (30-36); Mean Corpuscular Hemoglobin 29.4 PG (26-34); Mean Corpuscular Volume 89.7 fL (80-100); Monocytes Absolute Auto 700 /uL (0-900); Monocytes Percent Auto 10.2 % (3-14); Neutrophils Absolute Auto 4200 /uL (1500-7000); Neutrophils Percent Auto 56.5 % (50-75); Platelet Count 314 X10^3/uL (150-400); Red Blood Cell Count 4.59 X10^6/uL (4.0-5.2); Red Cell Distribution Width 13.8 % (11.6-14.8); White Blood Cell Count 7.4 X10^3/uL (4.5-11.0)
[2021-04-12 23:05] LABS: Alanine Aminotransferase 13 IU/L (<35); Albumin 4.5 g/dL (3.5-5.0); Albumin Globulin Ratio 1.5 (1.0-2.8); Alkaline Phosphatase 86 U/L (38-126); Aspartate Aminotransferase 30 IU/L (14-36); BUN Creatinine Ratio 13.4 (6-22); Blood Urea Nitrogen 11 mg/dL (7-17); Calcium 9.5 mg/dL (8.4-10.2); Carbon Dioxide 23 mmol/L (22-32); Chloride 104 mmol/L (98-107); Creatine Kinase 102 U/L (30-135); Estimated Glomerular Filt Rate > 60.0 mL/min (>60); Globulin 3.1 g/dL (1.7-4.1); Glucose 101 mg/dL (80-110); HEMOLYSIS < 15 (0-50); Lipase 139 U/L (23-300); Potassium 3.8 mmol/L (3.4-5.1); Sodium 135 mmol/L (137-145); Total Protein 7.6 g/dL (6.3-8.2)
[2021-04-12 23:16] LABS: Troponin I < 0.012 ng/mL (0.01-0.034)
[2021-04-12 23:20] LABS: CKMB % Relative Index 1.1 % (1.5-5.0); Creatine Kinase MB 1.13 ng/mL (<2.37)
[2021-04-13] VITALS (17 sets, daily range): BP systolic 179–193; BP diastolic 84–103; PULSE 49–64; RESP 12–20; O2SAT 97–98
--- NOTE | 2021-04-13 02:52 | ED.GENADULT ---
HPI - General Adult General Chief complaint: Hypertension Stated complaint: HIGH BLOOD PRESSURE Time Seen by Provider: 04/13/21 02:27 Source: patient and family Mode of arrival: Ambulatory Limitations: no limitations History of Present Illness HPI narrative: This is a 65-year-old female who comes emergency department with concern for hypertension. Patient states she has had elevated blood pressures up to 215/110. Patient states that she checked because she was just not feeling well in general. She states 2 weeks ago she had gastroenteritis with significant diarrheal she has any active temperatures were 108 environmentally. Patient states she felt unwell. She was not sleeping. She is checking her blood pressures she was hypertensive sometimes up into the 180s regularly even higher. She followed up with Dr. Chatterjee primary care who was monitoring and had normalized. She states this week she has been very active, standing her doc and getting her home ready to sell it has been very stressed and anxious. She is also not sleeping well. He had her increase her atenolol from 25 mg in the evening to 50 mg in the morning and 50 mg in the evening tonight. Patient states her blood pressure was 215/110 at home and is now 189/96 here in the department. She has had intermittent headaches. She has not any nausea vomiting. She had 1 episode of diarrhea. No chest pain, no shortness of breath but she has felt quite anxious, she has had panic attacks in the past. She denies any new swelling in her extremities. She is on atorvastatin, famotidine, trazodone, escitalopram and was just given a prescription for alprazolam 0.25 mg which she has not started. Patient has had a C4 through C7 spinal stenosis surgery, hysterectomy, , knee surgery and tonsillectomy. No tobacco, no alcohol and no illicit. Related Data Home Medications Medication Instructions Recorded Confirmed ATENOLOL (Tenormin) 25 mg PO EVERY DAY #0 06/28/07 04/12/21 Atorvastatin Calcium (Lipitor) 10 mg PO DAILY #0 06/28/07 04/12/21 alprazolam 0.25 mg tablet 0.25 mg PO Q4HP #0 04/29/11 04/12/21 escitalopram oxalate 10 mg tablet 5 mg PO DAILY 04/12/21 04/12/21 famotidine 20 mg tablet 20 mg PO BID 04/12/21 04/12/21 trazodone 50 mg tablet 50 mg PO BEDTIME 04/12/21 04/12/21 Allergies Allergy/AdvReac Type Severity Reaction Status Date / Time Nitrofurantoin Allergy Unknown Uncoded 12/14/17 13:01 SULFA (sulfonamide) Allergy Unknown Uncoded 12/14/17 13:01 Review of Systems Review of Systems ROS Unobtainable: All systems reviewed & are unremarkable except as noted in HPI and below Exam Narrative Exam Narrative: GENERAL: Alert and oriented x three, female in mild distress. HEENT: Head normocephalic, atraumatic, EOMI, pupils reactive, face symmetric, moist mucous membranes, no facial droop. NECK: Supple, full range of motion CARDIOVASCULAR: Regular rate and rhythm without murmurs, rubs or gallops. RESPIRATORY: Breath sounds equal bilaterally, no wheezes rales or rhonchi. ABDOMEN: Soft, nontender. Normoactive bowel sounds all 4 quadrants. No guarding or rebound, rigidity, no mass : No CVA tenderness EXTREMITIES: Normal range of motion, no clubbing or edema. 2+ pulses bilateral lower extremities. Neurovascularly intact NEUROLOGICAL: Cranial nerves II through XII grossly intact. Moving all extremities SKIN: Warm, dry, no petechiae, no rashes or lesions. Initial Vital Signs Initial Vital Signs: Vital Signs Temperature 98.6 F 04/12/21 22:24 Pulse Rate 65 04/12/21 22:24 Respiratory Rate 16 04/12/21 22:24 Blood Pressure 224/107 H 04/12/21 22:24 Pulse Oximetry 96 04/12/21 22:24 Scores GCS [place] coma scale eye opening: Spontaneous [place] coma scale verbal response: Orientated [place] coma scale motor response: Obey commands [place] coma scale total score: 15 Course Orders Ordered: ED Orders 04/12/21 22:33 XR chest 1V Stat EKG-12 Lead Stat 04/12/21 22:45 Complete Blood Count AUTO DIFF Stat Comprehensive Metabolic Panel Stat Lipase Stat Troponin & CK Cardiac Panel Stat 04/13/21 03:23 CT head/brain wo con Stat Vital Signs Vital signs: Vital Signs - 8 hr 04/12/21 22:24 04/12/21 22:40 04/12/21 22:41 Temperature 98.6 F Pulse Rate 65 58 L 62 Respiratory Rate 16 Blood Pressure 224/107 H 214/105 H Pulse Oximetry 96 99 99 08/08/21 23:00 04/12/21 23:20 04/12/21 23:30 Temperature Pulse Rate 55 L 64 54 L Respiratory Rate 20 17 16 Blood Pressure 196/95 H 212/101 H Pulse Oximetry 99 99 99 04/12/21 23:41 04/13/21 00:00 04/13/21 00:20 Temperature Pulse Rate 56 L 57 L 55 L Respiratory Rate 15 14 20 Blood Pressure 187/91 H 182/103 H 187/94 H Pulse Oximetry 98 98 98 04/13/21 00:30 04/13/21 00:40 04/13/21 01:11 Temperature Pulse Rate 51 L 55 L 64 Respiratory Rate 14 15 Blood Pressure 193/97 H Pulse Oximetry 98 98 98 04/13/21 01:13 04/13/21 01:20 04/13/21 01:30 Temperature Pulse Rate 55 L 55 L 54 L Respiratory Rate 12 15 15 Blood Pressure 187/84 H 179/90 H Pulse Oximetry 98 98 98 04/13/21 01:40 04/13/21 02:00 04/13/21 02:20 Temperature Pulse Rate 57 L 56 L 59 L Respiratory Rate 19 16 15 Blood Pressure 181/88 H 181/88 H 189/96 H Pulse Oximetry 98 98 98 04/13/21 02:30 04/13/21 02:40 04/13/21 03:00 Temperature Pulse Rate 58 L 57 L 55 L Respiratory Rate 15 14 Blood Pressure 190/91 H 188/95 H Pulse Oximetry 97 98 98 04/13/21 03:20 04/13/21 03:30 04/13/21 04:00 Temperature Pulse Rate 52 L 53 L 49 L Respiratory Rate 20 16 14 Blood Pressure 186/94 H Pulse Oximetry 98 97 97 Medical Decision Making Lab Data Result diagrams: 04/12/21 22:45 04/12/21 22:45 Labs: Lab Results 04/12/21 04/12/21 Range/Units 22:45 22:45 WBC 7.4 (4.5-11.0) X10^3/uL RBC 4.59 (4.0-5.2) X10^6/uL Hgb 13.5 (12.0-16.0) g/dL Hct 41.2 (36-46) % MCV 89.7 (80-100) fL MCH 29.4 (26-34) PG MCHC 32.7 (30-36) % RDW 13.8 (11.6-14.8) % Plt Count 314 (150-400) X10^3/uL Neut % (Auto) 56.5 (50-75) % Lymph % (Auto) 30.5 (25-40) % [place] % (Auto) 10.2 (3-14) % Eos % (Auto) 1.8 L (2-4) % Baso % (Auto) 1.0 (0-2) % Neut # (Auto) 4200 (2637-6904) /uL Lymph # (Auto) 2200 (9164-6121) /uL [place] # (Auto) 700 (0-900) /uL Eos # (Auto) 100 (0-450) /uL Baso # (Auto) 100 (0-100) /uL Sodium 135 L (137-145) mmol/L Potassium 3.8 (3.4-5.1) mmol/L Chloride 104 (98-107) mmol/L Carbon Dioxide 23 (22-32) mmol/L BUN 11 (7-17) mg/dL Creatinine 0.82 (0.52-1.04) mg/dL Estimated GFR > 60.0 (>60) mL/min BUN/Creatinine Ratio 13.4 (6-22) Glucose 101 (80-110) mg/dL Calcium 9.5 (8.4-10.2) mg/dL Total Bilirubin 1.0 (0.2-1.3) mg/dL AST 30 (14-36) IU/L ALT 13 (<35) IU/L Alkaline Phosphatase 86 (38-126) U/L Total Creatine Kinase 102 (30-135) U/L CK-MB (CK-2) 1.13 (<2.37) ng/mL CK-MB (CK-2) Rel Index 1.1 L (1.5-5.0) % Troponin I < 0.012 (0.01-0.034) ng/mL Total Protein 7.6 (6.3-8.2) g/dL Albumin 4.5 (3.5-5.0) g/dL Globulin 3.1 (1.7-4.1) g/dL Albumin/Globulin Ratio 1.5 (1.0-2.8) Lipase 139 (23-300) U/L Imaging Data Chest x-ray: Radiologist's Impression: [address] [id number] ReportSigned Patient: Gifty Garrison LMR#: [id number]: 4Acct:[id number]/Sex: 65 / FDate of Service: 04/12/21Loc: EDAccession Number: [id number] Procedure: XR chest 1V Ordering Provider: Mee Michelle D.O. PROCEDURE: XR CHEST 1V INDICATIONS: chest pain TECHNIQUE: One view of the chest was acquired. COMPARISON: [facility], CT, CT ABDOMEN PELVIS WITH CONTRAST, 09/27/2017, 2:47. FINDINGS: Surgical changes and devices: Partially visualized cervical spine fixation hardware.. Lungs and pleura: Lungs are clear of acute opacities. 5 millimeter nodular density projects over the right lung base.. No pleural effusions or pneumothorax. Mediastinum: Mediastinal contours appear normal. Heart size is normal. Bones and chest wall: No suspicious bony lesions. Overlying soft tissues appear unremarkable. IMPRESSION: 1. No acute cardiopulmonary disease process. 2. 5 millimeter nodular density projecting of the right lung base which could represent superimposition shadows versus nodule. Recommend nonemergent CT scan of the chest clinically feasible. Dictated by: Dulce Bonilla MD, PhD on 04/12/2021 at 22:55 Approved by: Dulce Bonilla MD, PhD on 04/12/2021 at 22:58 CT scan - head: Radiologist's Impression: Negative CT for acute intracranial pathology. ECG Data Attestation: I personally reviewed and interpreted this ECG as follows: Prior ECG tracings: not available for review Interpretation: Sinus rhythm, possible left atrial enlargement. Rate of 61 NM 168 QRS 84 QTC 422. No acute ST changes appreciated. Q-wave in 1 and aVL. MDM Narrative Medical decision making narrative: This is a 65-year-old female who presents with complaint of elevated blood pressure. Patient has had some headaches and felt generally unwell but has not had any other symptoms such as chest pain, shortness of breath, diaphoresis or other cardiac equivalent. Patient's blood pressure was somewhat improved without intervention here to the 180/90's range. Patient's labs are reassuring. Patient is noted to have a 5 mm nodule which could be checked nonemergent CT scan of the chest when appropriate. Patient did have her physician increase her atenolol to 50 mg twice daily and we discussed to continue at this time with that dosage. She has been reluctant take any alprazolam although she has been quite stressed and anxious and not sleeping and she was encouraged to add this on as needed for sleep so that she is at least getting appropriate sleep. She was encouraged to contact her physician if she checks her pressure at home it still is quite elevated. She is also encouraged to stop atenolol if she becomes very hypotensive or has other symptoms. And we discussed return precautions as well. This was not relayed to patient initially and Dr. Chatterjee was contact to faciliate follow up and he will help patient get appropriate testing. Discharge Plan Departure Patient Disposition: Home Clinical Impression: Hypertension Instructions: DI for High Blood Pressure Activity Restrictions/Additional Instructions: Follow-up with Dr. Chatterjee for recheck. Call for an appointment if you do not have one. I would encourage you to keep your atenolol increased at 50 mg b.i.d until you see Dr. Chatterjee. If you are having persistently elevated blood pressures, please contact Dr. Chatterjee to adjust your medication. If her blood pressures are low I would ask you to decrease your atenolol to 1 tablet twice daily. I also asked that you take your all present as prescribed as this may be helpful if you are having a lot of situational stress. Please return for fevers, new chest pain, shortness of breath, lightheadedness or passing out, severe intractable headaches, vision changes, difficulty with speech, movement, walking or talking, persistent vomiting or other new or concerning changes. Prescriptions: No Action ATENOLOL (Tenormin) 25 mg PO EVERY DAY Qty: 0 RF: 0 Atorvastatin Calcium (Lipitor) 10 mg PO DAILY Qty: 0 RF: 0 alprazolam 0.25 MG tablet 0.25 mg PO Q4HP Qty: 0 RF: 0 trazodone 50 mg tablet 50 mg PO BEDTIME RF: 0 famotidine 20 mg tablet 20 mg PO BID RF: 0 escitalopram oxalate 10 mg tablet 5 mg PO DAILY RF: 0 Referrals: Meet Chatterjee MD [Primary Care Provider] -
--- NOTE | 2021-04-13 03:23 | DI.CT.S_ITS ---
PROCEDURE: CT HEAD/BRAIN WO CON INDICATIONS: high blood pressure, polo TECHNIQUE: Noncontrast 4.5 mm thick angled axial sections acquired from the foramen magnum to the vertex, with coronal and sagittal reformats. For radiation dose reduction, the following was used: automated exposure control, adjustment of mA and/or kV according to patient size. COMPARISON: [facility], CT HEAD W/WO CONTRAST, 11/27/2003, 11:58. FINDINGS: Image quality: Excellent. CSF spaces: Basal cisterns are patent. No extra-axial fluid collections. The ventricles are symmetric in size and shape. Brain: No intracranial bleeds or masses. There is cerebral volume loss for age, with resultant ventricular and sulcal prominence. There are periventricular and deep white matter chronic small vessel ischemic changes. There is intracranial internal carotid artery atherosclerosis. Skull and face: Calvarium and visualized facial bones appear intact, without suspicious lesions. Sinuses: Visualized sinuses and mastoids are clear. IMPRESSION: 1. No acute intracranial abnormalities. No significant discrepancy with the night [facility] radiology preliminary report. Dictated by: Lor James M.D. on 04/13/2021 at 7:27 Approved by: Lor James M.D. on 04/13/2021 at 7:29
--- NOTE | 2021-04-13 03:26 | PC.NURSE ---
Pt took 0.25mg Alprazolam with MD martínez
== END 2021-04-13 04:30 | disposition home or self-care (01) ==
PROVIDERS: Emergency Provider Emergency Medicine; PCP Family Medicine
DX: R07.9 Chest pain, unspecified (principal); I10 Essential (primary) hypertension
CPT/HCPCS: 36415; 70450; 71045; 80053; 82550; 82553; 83690; 84484; 85025; 93005; 99284

== ENCOUNTER → 2021-04-16 11:56 | Outpatient (CLI) | payer MEDICARE, BC, SELFPAY ==
--- NOTE | 2021-04-16 11:58 | DI.CT.S_ITS ---
PROCEDURE: CT CHEST WO CON INDICATIONS: Solitary pulmonary nodule TECHNIQUE: Noncontrast 5 mm thick sections acquired from the pulmonary apices to the posterior costophrenic angles. 1 mm lung window, 5 mm thick coronal and sagittal and 7 mm axial MIP reformats were then acquired. For radiation dose reduction, the following was used: automated exposure control, adjustment of mA and/or kV according to patient size. COMPARISON: [facility], CR, XR CHEST 1V, 04/12/2021, 22:43. FINDINGS: Image quality: Excellent. Lungs and pleura: There is a 3 mm calcified granuloma in the right posterior lung base series 3, image 173. In the right middle lobe medially bronchiectasis and atelectasis is seen. The left upper lobe has an irregular 4 x 6 mm nodule series 3, image 36. The left lower lobe has a 4 x 6 mm nodule series 3, image 207. A 5 x 8 mm nodule in the right middle lobe anteriorly series 6, image 75 likely corresponds with the chest x-ray finding. No acute air space opacities. No pleural effusions or pneumothorax. Central and peripheral airways are patent and normal in caliber. Mediastinum: Heart size is normal. No pericardial effusion. No mediastinal adenopathy by size criteria. Thoracic aorta and central pulmonary arteries are normal in size. Esophagus is normal in caliber. No hiatal hernia. Bones and chest wall: No suspicious bony lesions. No vertebral body compression fractures. No axillary or supraclavicular adenopathy by size criteria. Thyroid gland is normal . Abdomen: Visualized upper abdominal solid organs and bowel loops appear normal in the absence of contrast. IMPRESSION: 1. No acute cardiopulmonary abnormality. 2. 4 x 6 mm left upper lobe nodule. 3. 4 x 6 mm left lower lobe nodule. 4. A 5 x 8 mm nodule in the right middle lobe corresponds with the nodule seen on chest x-ray. 5. Bronchiectasis in the right middle lobe medially. The above described nodules have a relatively benign appearance, recommend follow-up CT in 6 months to ensure stability of the above nodules. Dictated by: Naresh Man M.D. on 04/20/2021 at 15:54 Approved by: Naresh Man M.D. on 04/20/2021 at 16:03
== END ==
PROVIDERS: PCP Family Medicine; Referring Provider Family Medicine; Visit Provider Family Medicine
DX: R91.8 Other nonspecific abnormal finding of lung field (principal); J47.9 Bronchiectasis, uncomplicated
CPT/HCPCS: 71250

== ENCOUNTER → 2021-06-10 15:07 | Outpatient (CLI) | payer MEDICARE, BC, SELFPAY ==
--- NOTE | 2021-06-10 15:08 | DI.MG.S_ITS ---
BILATERAL DIGITAL SCREENING MAMMOGRAM 3D/2D WITH CAD: 06/10/2021 CLINICAL: Routine screening. Comparison is made to exams dated: 05/07/2020 mammogram, 04/30/2019 mammogram, and 04/26/2018 mammogram - [facility]. There are scattered fibroglandular elements in both breasts. Current study was also evaluated with a Computer Aided Detection (CAD) system. There is a biopsy clip in the left breast. No significant masses, calcifications, or other findings are seen in either breast. There has been no significant interval change. IMPRESSION: NEGATIVE There is no mammographic evidence of malignancy. A 1 year screening mammogram is recommended. This exam was interpreted at Station ID: [id number]. NOTE: For mammograms, a report in lay terms will be sent to the patient. Approximately 15% of breast malignancies will not be visualized mammographically. In the management of a palpable breast mass, a negative mammogram must not discourage biopsy of a clinically suspicious lesion. Electronically Signed By: Benji bailey/montse:06/10/2021 16:10:11 letter sent: Normal Exam ACR BI-RADS Category 1: Negative 3341F
== END ==
PROVIDERS: PCP Family Medicine; Referring Provider Family Medicine; Visit Provider Family Medicine
DX: Z12.31 Encounter for screening mammogram for malignant neoplasm of breast (principal)
CPT/HCPCS: 77063; 77067

== ENCOUNTER → 2021-10-30 13:40 | Outpatient (CLI) | payer MEDICARE, BC, SELFPAY ==
--- NOTE | 2021-10-30 | DI.CT.S_ITS ---
PROCEDURE: CT CHEST WO CON INDICATIONS: Solitary pulmonary nodule TECHNIQUE: Noncontrast 5 mm thick sections acquired from the pulmonary apices to the posterior costophrenic angles. 1 mm lung window, 5 mm thick coronal and sagittal and 7 mm axial MIP reformats were then acquired. For radiation dose reduction, the following was used: automated exposure control, adjustment of mA and/or kV according to patient size. COMPARISON: [facility], CT, CT CHEST WO CON, 04/16/2021, 12:01. FINDINGS: Image quality: Excellent. Lungs and pleura: There is a 3 mm calcified granuloma in the right posterior lung base series 3, image 175, unchanged. In the right middle lobe medially bronchiectasis and atelectasis are seen, unchanged. In the left upper lobe there is an irregular 4 x 6 mm nodule series 3, image 45 which is unchanged. A 5 x 8 mm nodule in the right middle lobe anteriorly series 3, image 136 is unchanged. No acute air space opacities. No pleural effusions or pneumothorax. Central and peripheral airways are patent and normal in caliber. Mediastinum: Heart size is normal. No pericardial effusion. No mediastinal adenopathy by size criteria. Thoracic aorta and central pulmonary arteries are normal in size. Esophagus is normal in caliber. No hiatal hernia. Bones and chest wall: Degenerative changes with no focal abnormality. No suspicious bony lesions. No vertebral body compression fractures. No axillary or supraclavicular adenopathy by size criteria. Thyroid gland is normal. Abdomen: Visualized upper abdominal solid organs and bowel loops appear normal in the absence of contrast. IMPRESSION: 1. No acute cardiopulmonary abnormality. 2. Pulmonary nodules as described above are stable compared to the prior CT on 04/16/2021. Recommend additional follow-up in 12 months to ensure long-term stability. Dictated by: Naresh Man M.D. on 10/30/2021 at 16:38 Approved by: Naresh Man M.D. on 10/30/2021 at 16:59
== END ==
PROVIDERS: PCP Family Medicine; Referring Provider Family Medicine; Visit Provider Family Medicine
DX: R91.8 Other nonspecific abnormal finding of lung field (principal)
CPT/HCPCS: 71250

== ENCOUNTER → 2021-11-16 16:45 | Outpatient (CLI) | payer MEDICARE, BC, SELFPAY ==
[2021-11-16 18:02] LABS: Add Manual Diff / Slide Review NO; Basophils Absolute Auto 0 /uL (0-100); Basophils Percent Auto 0.5 % (0-2); Eosinophils Absolute Auto 100 /uL (0-450); Eosinophils Percent Auto 1.2 % (2-4); Hematocrit 39.7 % (36-46); Hemoglobin 13.6 g/dL (12.0-16.0); Lymphocytes Absolute Auto 1900 /uL (1100-4500); Lymphocytes Percent Auto 29.2 % (25-40); Mean Corpuscular HGB Conc 34.2 % (30-36); Mean Corpuscular Hemoglobin 30.1 PG (26-34); Monocytes Absolute Auto 700 /uL (0-900); Monocytes Percent Auto 9.8 % (3-14); Neutrophils Absolute Auto 4000 /uL (1500-7000); Neutrophils Percent Auto 59.3 % (50-75); Platelet Count 256 X10^3/uL (150-400); Red Blood Cell Count 4.51 X10^6/uL (4.0-5.2); Red Cell Distribution Width 13.2 % (11.6-14.8); White Blood Cell Count 6.7 X10^3/uL (4.5-11.0)
== END ==
PROVIDERS: PCP Family Medicine; Referring Provider Family Medicine; Visit Provider Family Medicine
DX: K62.5 Hemorrhage of anus and rectum (principal)
CPT/HCPCS: 36415; 85025

== ENCOUNTER → 2021-11-18 10:56 | Outpatient (CLI) | payer MEDICARE, BC, SELFPAY ==
[2021-11-19 16:49] LABS: Fecal Immunochemical Test Negative (Negative)
== END ==
PROVIDERS: PCP Family Medicine; Referring Provider Family Medicine; Visit Provider Family Medicine
DX: K62.5 Hemorrhage of anus and rectum (principal)
CPT/HCPCS: 82274

== ENCOUNTER → 2022-04-23 09:00 | Outpatient (CLI) | payer MEDICARE, BC, SELFPAY ==
--- NOTE | 2022-04-23 | DI.CT.S_ITS ---
PROCEDURE: CT ABDOMEN PELVIS W CON INDICATIONS: Unspecified abdominal pain TECHNIQUE: After the administration of oral and intravenous contrast, axial sections were acquired from the lung bases to the pubic symphysis. Coronal and sagittal reformats were performed. For radiation dose reduction, the following was used: automated exposure control, adjustment of mA and/or kV according to patient size. COMPARISON:[facility], CT, CT CHEST WO CON, 10/30/2021, 13:51. [facility], CT, CT-IVP, 11/15/2007, 8:14. [facility]ed [facility], CT, CT ABDOMEN PELVIS WITH CONTRAST, 09/27/2017, 2:47. FINDINGS: Image quality: Excellent. Lung bases: A pleural based lesion on current image 1 is unchanged from 2007. It is a benign lesion. There is anterior bibasilar scarring in the medial right middle lobe and lingula, unchanged from 10/30/2021. Heart: No significant findings. ABDOMEN: Liver: Unremarkable. Gallbladder: Unremarkable. Biliary ducts: Unremarkable. Pancreas: Unremarkable. Spleen: Unremarkable. Adrenal Glands: Unremarkable. Kidneys and Ureters: Unremarkable. Stomach and Bowel: Stomach, small bowel loops, and colon are unremarkable. Peritoneum: No abnormal intraperitoneal fluid. No free air. Ventral Wall: No hernia. Abdominal Nodes: No retroperitoneal or mesenteric adenopathy by size criteria. Vessels: Aorta and inferior vena cava are normal in size. PELVIS: Pelvic Organs: Uterus is surgically absent.. Bladder: Unremarkable. Pelvic Nodes: No enlarged lymph nodes. Miscellaneous: No inguinal hernias are seen. Bones: There is a hemangioma involving the right side of the L5 vertebral body which gives a stable lucent appearance, unchanged since 2007. No suspicious bony lesions. Lumbar degenerative change. Canal stenosis at L4-L5. IMPRESSION: 1. No evidence of acute abdominal process. 2. Lumbar degenerative change with canal stenosis at L4-L5. Dictated by: Michael Davis M.D. on 04/23/2022 at 15:07 Approved by: Michael Davis M.D. on 04/23/2022 at 15:15
== END ==
PROVIDERS: PCP Family Medicine; Referring Provider Family Medicine; Visit Provider Family Medicine
DX: R10.9 Unspecified abdominal pain (principal); M47.816 Spondylosis without myelopathy or radiculopathy, lumbar region; M48.061 Spinal stenosis, lumbar region without neurogenic claudication
CPT/HCPCS: 74177; Q9967

== ENCOUNTER → 2022-08-09 10:52 | Outpatient (CLI) | payer MEDICARE, BC, SELFPAY ==
--- NOTE | 2022-08-09 | DI.RAD.S_ITS ---
PROCEDURE: XR DEXA AXIAL SKELETON INDICATIONS: Age-related osteoporosis COMPARISON: [facility], CR, XR DEXA AXIAL SKELETON, 03/04/2020, 15:05. FINDINGS: This blank DEXA report has been sent in error by the PACS system. The correct and complete report will be forthcoming in 1-2 days. Thank you for your patience and understanding. Dictated by: Dulce Bonilla MD, PhD on 08/10/2022 at 13:21 Approved by: Dulce Bonilla MD, PhD on 08/10/2022 at 13:21
== END ==
PROVIDERS: PCP Family Medicine; Referring Provider Family Medicine; Visit Provider Family Medicine
DX: M81.0 Age-related osteoporosis without current pathological fracture (principal); Z78.0 Asymptomatic menopausal state; Z90.710 Acquired absence of both cervix and uterus
CPT/HCPCS: 77080

== ENCOUNTER → 2022-09-08 10:46 | Outpatient (CLI) | payer MEDICARE, BC, SELFPAY ==
--- NOTE | 2022-09-08 | DI.US.S_ITS ---
PROCEDURE: US PELVIC COMPLETE INDICATIONS: 66-year-old female with pelvic pain status post remote history of hysterectomy, oophorectomy 28 years prior TECHNIQUE: Real-time scanning was performed of the pelvic organs, with image documentation. Additional endovaginal scanning was necessary due to incomplete visualization of the adnexal and endometrial structures by transabdominal scanning. COMPARISON: [facility], , PELVIC COMPLETE, 12/05/2007, 9:29. FINDINGS: Uterus: Hysterectomy Ovaries: Right oophorectomy. Left ovary measures 0.8 x 1.1 x 0.8 cm, volume 0.4 cc. Left ovary has appropriate echotexture and vascularity. Other: No pathologic free abdominal or pelvic fluid. IMPRESSION: Normal ultrasound the pelvis status post hysterectomy and right oophorectomy Approved by: Dawood Ramos M.D. on 09/08/2022 at 13:01
== END ==
PROVIDERS: PCP Family Medicine; Referring Provider Family Medicine; Visit Provider Family Medicine
DX: R10.2 Pelvic and perineal pain (principal); R10.32 Left lower quadrant pain; Z90.710 Acquired absence of both cervix and uterus; Z90.721 Acquired absence of ovaries, unilateral
CPT/HCPCS: 76830; 76856; 93976

== ENCOUNTER → 2023-03-05 13:45 | Outpatient (CLI) | payer MEDICARE, BC, SELFPAY ==
--- NOTE | 2023-03-05 13:47 | DI.CT.S_ITS ---
PROCEDURE: CT CHEST WO CON INDICATIONS: Solitary pulmonary nodule TECHNIQUE: Noncontrast 2.0-2.5 mm thick sections acquired from the pulmonary apices to the posterior costophrenic angles. 7 mm thick axial MIP and 5 mm coronal and sagittal reformats were then acquired. A low radiation dose technique was utilized. COMPARISON: [facility], CT, CT CHEST WO CON, 04/16/2021, 12:01. [facility], CT, CT CHEST WO CON, 10/30/2021, 13:51. FINDINGS: Image quality: Diagnostic, given the low radiation dose technique. Lungs and pleura: Volume loss and bronchiectasis in the right middle lobe and lingula, stable from prior. Multiple solid pulmonary nodules are again seen. Largest examples below: -stable 6 x 5 mm solid nodule, left lower lobe (series 3, image 200). -stable 5 mm juxtapleural nodule, right middle lobe (series 3, image 145). -stable 5 mm solid nodule, left upper lobe (series 3, image 43). -4 mm solid nodule, right lower lobe (series 3, image 177). Mediastinum: Heart size is normal. No pericardial effusion. No mediastinal adenopathy by size criteria. Thoracic aorta and central pulmonary arteries are normal in size. Esophagus is normal in caliber. No hiatal hernia. Bones and chest wall: No suspicious bony lesions. No vertebral body compression fractures. No axillary or supraclavicular adenopathy by size criteria. Thyroid gland is unremarkable . Abdomen: Visualized upper abdomen solid organs and bowel loops appear normal in the absence of contrast. IMPRESSION: Stable pulmonary nodules since 2020, statistically benign. 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 Fleischner Society criteria for SOLID lung nodule followup. Nodule size (mm)Low-risk patientHigh-risk patient<6 (single or multiple)No routine followup.Optional CT at 12 months. 6-8 (single or multiple)CT at 6-12 months, then optional CT at 18-24 mo.CT at 6-12 months, then CT at 18-24 months. >8 (single)CT at 3 months, PET-CT, or biopsy. Same as for low-risk pts. >8 (multiple)CT at 3-6 months, then optional CT at 18-24 mo.CT at 3-6 months, then CT at 18-24 months. Fleischner Society criteria for SUB-SOLID lung nodule followup. Solitary pure ground-glass nodules<6 mm (ground glass or part solid)No followup needed. 6 mm or larger (ground glass)CT at 6-12 months to confirm persistence, then CT every 2 years until 5 years.6 mm or larger (part solid)CT at 3-6 months to confirm persistence, then annual CT until 5 years if unchanged and solid component remains <6 mm. Multiple sub-solid nodules<6 mmCT at 3-6 months, then CT consider at 2 & 4 years for high risk patients. [address] at 3-6 months. Subsequent management based on most suspicious lesions. Recommendations do not apply to lung cancer screening, patients with immunosuppression, or patients with known primary cancer. Dictated by: Dima Nunez M.D. on 03/05/2023 at 19:03 Approved by: Dima Nunez M.D. on 03/05/2023 at 19:07
== END ==
PROVIDERS: PCP Family Medicine; Referring Provider Family Medicine; Visit Provider Family Medicine
DX: R91.8 Other nonspecific abnormal finding of lung field (principal); J47.9 Bronchiectasis, uncomplicated
CPT/HCPCS: 71250

== ENCOUNTER → 2023-07-19 11:36 | Outpatient (CLI) | payer MEDICARE, BC, SELFPAY ==
--- NOTE | 2023-07-19 | DI.RAD.S_ITS ---
PROCEDURE: XR WRIST RT MIN 3V INDICATIONS: RIGHT WRIST PAIN TECHNIQUE: 4 views of the wrist were acquired. COMPARISON: None. FINDINGS: Bones: No fractures or dislocations. No suspicious bony lesions. 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 Scaphoid view: Scaphoid is intact. Soft tissues: No suspicious soft tissue calcifications. IMPRESSION: No fracture. No acute osseous lesion. If symptoms and/or clinical suspicion for pathology persists, further assessment with repeat radiographs (7-10 days) or advanced imaging (e.g. CT, MRI or bone scan) should be considered. Dictated by: Dulce Bonilla MD, PhD on 07/19/2023 at 13:25 Approved by: Dulce Bonilla MD, PhD on 07/19/2023 at 13:51
== END ==
PROVIDERS: PCP Family Medicine; Referring Provider Family Medicine; Visit Provider Family Medicine
DX: M19.031 Primary osteoarthritis, right wrist (principal); M18.11 Unilateral primary osteoarthritis of first carpometacarpal joint, right hand; M25.531 Pain in right wrist
CPT/HCPCS: 73110

== ENCOUNTER → 2023-07-20 13:14 | Outpatient (CLI) | payer MEDICARE, BC, SELFPAY ==
--- NOTE | 2023-07-20 | DI.MG.S_ITS ---
BILATERAL DIGITAL SCREENING MAMMOGRAM 3D/2D WITH CAD: 07/20/2023 CLINICAL: Routine screening. Comparison is made to exams dated: 06/10/2021 mammogram, 05/07/2020 mammogram, 04/30/2019 mammogram, and 04/26/2018 mammogram - [facility]. There are scattered areas of fibroglandular density in both breasts (category b / 25%-50% glandular tissue). Current study was also evaluated with a Computer Aided Detection (CAD) system. There is a biopsy clip in the left breast. No significant masses, calcifications, or other findings are seen in either breast. There has been no significant interval change. IMPRESSION: NEGATIVE There is no mammographic evidence of malignancy. A 1 year screening mammogram is recommended. Based on the Tyrer Cuzick model (a risk assessment model) the patient's lifetime risk is 3.4% and her 10 year risk is 2.0%. According to the ACR, ACS, and NCCN guidelines, an annual breast MRI exam along with mammogram is recommended if the patient's lifetime risk is 20% or greater. This exam was interpreted at Station ID: [id number]. NOTE: For mammograms, a report in lay terms will be sent to the patient. Approximately 15% of breast malignancies will not be visualized mammographically. In the management of a palpable breast mass, a negative mammogram must not discourage biopsy of a clinically suspicious lesion. Electronically Signed By: Sourav [email or web address]/montse:07/20/2023 16:19:28 letter sent: Normal Exam ACR BI-RADS Category 1: Negative [id number]
== END ==
PROVIDERS: PCP Family Medicine; Referring Provider Family Medicine; Visit Provider Family Medicine
DX: Z12.31 Encounter for screening mammogram for malignant neoplasm of breast (principal)
CPT/HCPCS: 77063; 77067

== ENCOUNTER → 2024-02-15 11:09 | Outpatient (CLI) | payer MEDICARE, BC, SELFPAY ==
--- NOTE | 2024-02-15 11:11 | DI.CT.S_ITS ---
PROCEDURE: CT CHEST WO CON INDICATIONS: PULMONARY NODULES TECHNIQUE: Noncontrast 2.0-2.5 mm thick sections acquired from the pulmonary apices to the posterior costophrenic angles. 7 mm thick axial MIP and 5 mm coronal and sagittal reformats were then acquired. For radiation dose reduction, the following was used: automated exposure control, adjustment of mA and/or kV according to patient size. COMPARISON: [facility], CT, CT CHEST WO CON, 10/30/2021, 13:51. [facility], CT, CT CHEST WO CON, 03/05/2023, 14:15. FINDINGS: Image quality: Diagnostic. Lower Neck: No enlarged lymph nodes. Thyroid: No thyroid nodules which require sonographic follow up, per consensus guidelines. Axillae: No enlarged lymph nodes. Chest Wall: Unremarkable. Bones: Unremarkable. Lungs and Pleura: No pneumothorax or pleural effusions. 5 mm pulmonary nodule at the left apex is unchanged from the study dated October 30, 2021 (series 3/image 36). A pleural based nodule or pulmonary scar is redemonstrated at the lateral right lower lobe unchanged from 2001 (series 3/image 152). A 6 mm pulmonary nodule at the lateral left lung base is unchanged (series 3/image 189). No new suspicious pulmonary nodules which require follow-up. No acute airspace opacities. Heart: Heart size is normal. No pericardial effusion. Thoracic Vessels: The aorta and pulmonary arteries demonstrate normal size. Mediastinum and Radha: No enlarged lymph nodes. Esophagus: No wall thickening. No hiatal hernia. Upper Abdomen: Visualized upper abdomen solid organs and bowel loops appear normal. IMPRESSION: 1. Multiple subcentimeter stable pulmonary nodules. No pulmonary nodules which require follow-up. Fleischner Society criteria for SOLID lung nodule followup. Nodule size (mm)Low-risk patientHigh-risk patient<6 (single or multiple)No routine followup.Optional CT at 12 months. 6-8 (single or multiple)CT at 6-12 months, then optional CT at 18-24 mo.CT at 6-12 months, then CT at 18-24 months. >8 (single)CT at 3 months, PET-CT, or biopsy. Same as for low-risk pts. >8 (multiple)CT at 3-6 months, then optional CT at 18-24 mo.CT at 3-6 months, then CT at 18-24 months. Fleischner Society criteria for SUB-SOLID lung nodule followup. Solitary pure ground-glass nodules<6 mm (ground glass or part solid)No followup needed. 6 mm or larger (ground glass)CT at 6-12 months to confirm persistence, then CT every 2 years until 5 years.6 mm or larger (part solid)CT at 3-6 months to confirm persistence, then annual CT until 5 years if unchanged and solid component remains <6 mm. Multiple sub-solid nodules<6 mmCT at 3-6 months, then CT consider at 2 & 4 years for high risk patients. [address] at 3-6 months. Subsequent management based on most suspicious lesions. Recommendations do not apply to lung cancer screening, patients with immunosuppression, or patients with known primary cancer. Dictated by: Janice Morel M.D. on 02/15/2024 at 13:03 Approved by: Janice Morel M.D. on 02/15/2024 at 13:08
== END ==
LOC: CT 11:10
PROVIDERS: PCP Family Medicine; Referring Provider Family Medicine; Visit Provider Family Medicine
DX: R91.1 Solitary pulmonary nodule (principal)
CPT/HCPCS: 71250